=== PATIENT | female | born 1945 | race Caucasian/White ===

== ENCOUNTER 2016-05-05 10:05 | Inpatient (IN) | payer MEDICARE, OTHER ==
[~2016-05-05] VITALS: Ht 152.4 cm; Wt 44.2 kg
[2016-05-05] MEDS ORDERED: DILAUDID 1 MG/ML AMP ONE (12:01)
[2016-05-05] MEDS ORDERED: ONDANSETRON 4 MG VIAL ONE (12:02)
[2016-05-05] MEDS ORDERED: LIDOCAINE 2% 20 ML ONE (12:53)
[2016-05-05] MEDS ORDERED: SALINE FLUSH 10 ML FLUSH PRN ×2 (13:15→14:00)
[2016-05-05] MEDS ORDERED: ACETAMINOPHEN 325 MG TAB PO PRN (13:15)
[2016-05-05] MEDS ORDERED: ONDANSETRON 4 MG VIAL IV PRN (13:15)
[2016-05-05] MEDS ORDERED: KETOROLAC 15 MG/ML VIAL IV PRN (13:15)
[2016-05-05] MEDS ORDERED: DILAUDID 1 MG/ML AMP IV ONE (13:45)
[2016-05-05] MEDS ORDERED: ONDANSETRON 4 MG VIAL IV PUSH ONE (13:45)
[2016-05-05] MEDS ORDERED: KETOROLAC 30 MG/ML VIAL ONE (14:34)
[2016-05-05] MEDS: DUONEB INH SCH ×3 (15:00→22:43)
[2016-05-05 15:40] VITALS: BP_SYST 153; RESP 20; TEMP 97.4; Ht 152.4 cm; Wt 44.2 kg
[2016-05-05] MEDS ORDERED: DUONEB INH ONE (15:47)
[2016-05-05 15:52] VITALS: RESP 24
[2016-05-05] MEDS: NEB-BROVANA 15 MCG/2 ML INH SCH (18:27)
[2016-05-05] MEDS: OXYCODONE 5 MG TAB PO PRN (18:28)
[2016-05-05 19:22] VITALS: BP_SYST 157
[2016-05-05 19:23] VITALS: RESP 24; TEMP 97.7
[2016-05-05] MEDS: LORAZEPAM 0.5 MG TAB PO SCH (20:16)
[2016-05-05] MEDS: SALINE FLUSH 10 ML FLUSH SCH (20:16)
[2016-05-05] MEDS: cloNIDine 0.1 MG TAB PO SCH (20:18)
[2016-05-05] MEDS: METOPROLOL XL 50 MG TAB PO SCH (20:18)
[2016-05-05 22:41] VITALS: BP_SYST 160; RESP 20; TEMP 97.3
[2016-05-06] VITALS (9 sets, daily range): BP systolic 138–169; RESP 16–20; TEMP 97.3–98.2
[2016-05-06] MEDS: OXYCODONE 5 MG TAB PO PRN ×2 (02:03→10:44)
[2016-05-06] MEDS: DUONEB INH SCH ×6 (02:38→22:28)
[2016-05-06] MEDS: SODIUM CHLORIDE 0.9% FLUSH BAG 500 ML IV SCH (06:00)
[2016-05-06] MEDS: PANTOPRAZOLE 40 MG TAB PO SCH (06:03)
[2016-05-06] MEDS: NEB-BROVANA 15 MCG/2 ML INH SCH ×2 (06:57→18:32)
[2016-05-06] MEDS ORDERED: MISSING DOSE XX ONE (07:50)
[2016-05-06] MEDS: MEGESTROL 800 MG/20 ML UDC PO SCH (08:32)
[2016-05-06] MEDS: cloNIDine 0.1 MG TAB PO SCH ×2 (08:32→20:01)
[2016-05-06] MEDS: LORAZEPAM 0.5 MG TAB PO SCH ×3 (08:32→20:02)
[2016-05-06] MEDS: RALOXIFENE HCL 60 MG TAB PO SCH (08:32)
[2016-05-06] MEDS: amLODIPine 10 MG TAB PO SCH (08:32)
[2016-05-06] MEDS: ENOXAPARIN 40 MG/0.4 ML SYR SUBQ SCH (08:33)
[2016-05-06] MEDS: SALINE FLUSH 10 ML FLUSH SCH ×2 (08:33→20:02)
[2016-05-06] MEDS: NEB-BUDESONIDE 0.5 MG INH SCH (18:32)
[2016-05-06] MEDS: METOPROLOL XL 50 MG TAB PO SCH (20:01)
[2016-05-06] MEDS: hydrOXYzine PAM 50 MG CAP PO SCH (20:01)
[2016-05-07] VITALS (10 sets, daily range): BP systolic 126–150; RESP 18–20; TEMP 97–97.7
[2016-05-07] MEDS: DUONEB INH SCH ×6 (02:28→22:28)
[2016-05-07] MEDS: NEB-BROVANA 15 MCG/2 ML INH SCH ×2 (05:11→18:28)
[2016-05-07] MEDS: NEB-BUDESONIDE 0.5 MG INH SCH ×2 (05:11→18:28)
[2016-05-07] MEDS: SODIUM CHLORIDE 0.9% FLUSH BAG 500 ML IV SCH (06:00)
[2016-05-07] MEDS: PANTOPRAZOLE 40 MG TAB PO SCH (06:32)
[2016-05-07] MEDS: LORAZEPAM 0.5 MG TAB PO SCH ×3 (08:38→19:55)
[2016-05-07] MEDS: MEGESTROL 800 MG/20 ML UDC PO SCH (08:38)
[2016-05-07] MEDS: cloNIDine 0.1 MG TAB PO SCH ×2 (08:39→19:55)
[2016-05-07] MEDS: RALOXIFENE HCL 60 MG TAB PO SCH (08:39)
[2016-05-07] MEDS: ENOXAPARIN 40 MG/0.4 ML SYR SUBQ SCH (08:39)
[2016-05-07] MEDS: amLODIPine 10 MG TAB PO SCH (08:39)
[2016-05-07] MEDS: SALINE FLUSH 10 ML FLUSH SCH ×2 (08:40→19:56)
[2016-05-07] MEDS: hydrOXYzine PAM 50 MG CAP PO SCH (19:55)
[2016-05-07] MEDS: METOPROLOL XL 50 MG TAB PO SCH (19:56)
[2016-05-08] VITALS (9 sets, daily range): BP systolic 114–152; RESP 16–20; TEMP 97.2–98
[2016-05-08] MEDS: DUONEB INH SCH ×6 (02:44→22:22)
[2016-05-08] MEDS: SODIUM CHLORIDE 0.9% FLUSH BAG 500 ML IV SCH (04:06)
[2016-05-08] MEDS: PANTOPRAZOLE 40 MG TAB PO SCH (06:22)
[2016-05-08] MEDS: NEB-BUDESONIDE 0.5 MG INH SCH ×2 (06:38→17:37)
[2016-05-08] MEDS: NEB-BROVANA 15 MCG/2 ML INH SCH ×2 (06:38→17:37)
[2016-05-08] MEDS: cloNIDine 0.1 MG TAB PO SCH ×2 (08:57→19:51)
[2016-05-08] MEDS: amLODIPine 10 MG TAB PO SCH (08:57)
[2016-05-08] MEDS: LORAZEPAM 0.5 MG TAB PO SCH ×4 (08:57→19:52)
[2016-05-08] MEDS: RALOXIFENE HCL 60 MG TAB PO SCH (08:57)
[2016-05-08] MEDS: MEGESTROL 800 MG/20 ML UDC PO SCH (08:57)
[2016-05-08] MEDS: SALINE FLUSH 10 ML FLUSH SCH ×2 (08:57→19:52)
[2016-05-08] MEDS: ENOXAPARIN 40 MG/0.4 ML SYR SUBQ SCH (08:58)
[2016-05-08] MEDS: METOPROLOL XL 50 MG TAB PO SCH (19:51)
[2016-05-08] MEDS: hydrOXYzine PAM 50 MG CAP PO SCH (19:52)
[2016-05-09] VITALS (9 sets, daily range): BP systolic 120–158; RESP 16–24; TEMP 97.3–98.1
[2016-05-09] MEDS: DUONEB INH SCH ×6 (02:57→23:06)
[2016-05-09] MEDS: SODIUM CHLORIDE 0.9% FLUSH BAG 500 ML IV SCH ×2 (06:00→19:38)
[2016-05-09] MEDS: NEB-BUDESONIDE 0.5 MG INH SCH ×2 (06:39→19:09)
[2016-05-09] MEDS: NEB-BROVANA 15 MCG/2 ML INH SCH ×2 (06:39→19:09)
[2016-05-09] MEDS: PANTOPRAZOLE 40 MG TAB PO SCH (07:31)
[2016-05-09] MEDS: MEGESTROL 800 MG/20 ML UDC PO SCH (09:08)
[2016-05-09] MEDS: amLODIPine 10 MG TAB PO SCH (09:08)
[2016-05-09] MEDS: RALOXIFENE HCL 60 MG TAB PO SCH (09:08)
[2016-05-09] MEDS: ENOXAPARIN 40 MG/0.4 ML SYR SUBQ SCH (09:09)
[2016-05-09] MEDS: cloNIDine 0.1 MG TAB PO SCH ×2 (09:09→20:01)
[2016-05-09] MEDS: LORAZEPAM 0.5 MG TAB PO SCH ×3 (09:09→20:01)
[2016-05-09] MEDS: SALINE FLUSH 10 ML FLUSH SCH ×2 (09:13→20:01)
[2016-05-09] MEDS: hydrOXYzine PAM 50 MG CAP PO SCH (20:01)
[2016-05-09] MEDS: METOPROLOL XL 50 MG TAB PO SCH (20:01)
[2016-05-10 02:50] VITALS: BP_SYST 135; TEMP 97.8
[2016-05-10 02:51] VITALS: RESP 20
[2016-05-10] MEDS: DUONEB INH SCH ×3 (02:59→10:26)
[2016-05-10] MEDS: PANTOPRAZOLE 40 MG TAB PO SCH (06:13)
[2016-05-10 07:21] VITALS: BP_SYST 151; RESP 18; TEMP 97.6
[2016-05-10] MEDS: NEB-BUDESONIDE 0.5 MG INH SCH (07:35)
[2016-05-10] MEDS: NEB-BROVANA 15 MCG/2 ML INH SCH (07:35)
[2016-05-10] MEDS: SALINE FLUSH 10 ML FLUSH SCH (08:07)
[2016-05-10] MEDS: LORAZEPAM 0.5 MG TAB PO SCH (08:07)
[2016-05-10] MEDS: cloNIDine 0.1 MG TAB PO SCH (08:07)
[2016-05-10] MEDS: amLODIPine 10 MG TAB PO SCH (08:07)
[2016-05-10] MEDS: RALOXIFENE HCL 60 MG TAB PO SCH (08:07)
[2016-05-10] MEDS: ENOXAPARIN 40 MG/0.4 ML SYR SUBQ SCH (08:08)
[2016-05-10] MEDS: MEGESTROL 800 MG/20 ML UDC PO SCH (08:08)
[2016-05-10 10:36] VITALS: BP_SYST 138; RESP 18; TEMP 97.8
[2016-05-10 11:21] VITALS: BP_SYST 138; RESP 18; TEMP 97.8
== END 2016-05-10 11:54 | disposition home or self-care (01) | DRG 200 ==
LOC: ENRESERVTM → ENRESERVDT → CT 10:05 → TBA 14:05 → ENPENDDIS 14:05 → 3NT 15:52
PROVIDERS: ADMIT Internal Medicine; ATTEND Internal Medicine
PROC: 0BBC3ZX Excision of Right Upper Lung Lobe, Percutaneous Approach, Diagnostic (ICD-10-PCS; principal; 2016-05-05)
PROC: 0W9930Z Drainage of Right Pleural Cavity with Drainage Device, Percutaneous Approach (ICD-10-PCS; 2016-05-05)
CPT/HCPCS: 32405; 71010; 77012; 80069; 83735; 85025; 85610; 85730; 88307; 88333; 94640; 94799; 99223; 99233